=== PATIENT | female | born 1955 | race Caucasian/White ===

== ENCOUNTER 2017-09-18 10:57 | Emergency (ER) | payer MEDICAID ==
[~2017-09-18] VITALS: Ht 165.1 cm; Wt 73.8 kg
[2017-09-18 10:59] VITALS: BP 156/77
== END 2017-09-18 11:39 | disposition home or self-care (01) ==
LOC: ED 11:36
DX: B02.9 Zoster without complications (principal); E78.5 Hyperlipidemia, unspecified
CPT/HCPCS: 99283